=== PATIENT | female | born 1985 ===

== ENCOUNTER 2023-10-24 14:36 | Emergency (ER) | payer MEDICAID ==
[~2023-10-24] VITALS: Ht 157.5 cm; Wt 95.0 kg
[2023-10-24 15:08] VITALS: BP 125/66; PULSE 85; TEMP 98.6; O2SAT 100
[2023-10-24] MEDS ORDERED: VALA10002 MT (18:42)
== END 2023-10-24 18:54 | disposition home or self-care (01) ==
LOC: ER 14:36
DX: B00.9 Herpesviral infection, unspecified (principal); D64.9 Anemia, unspecified; Z90.49 Acquired absence of other specified parts of digestive tract
CPT/HCPCS: 99281; 99283